=== PATIENT | male | born 1990 | race Hispanic/Latino ===

== ENCOUNTER 2019-02-09 06:29 | Emergency (ER) | payer OTHER ==
[2019-02-09] MEDS ORDERED: IBUPROFEN 600 MG TABLET ONE (07:24)
[2019-02-09] MEDS ORDERED: ORPHENADRINE CITRATE 30 MG/ML ML ONE (07:33)
== END 2019-02-09 08:03 | disposition home or self-care (01) ==
LOC: EDH 06:29
DX: S39.012A Strain of muscle, fascia and tendon of lower back, initial encounter (principal); X58.XXXA Exposure to other specified factors, initial encounter; Y93.67 Activity, basketball; Y92.89 Other specified places as the place of occurrence of the external cause; Y99.8 Other external cause status
CPT/HCPCS: 99284; 96372; 72100; J2360